=== PATIENT | female | born 1935 ===

== ENCOUNTER 2023-06-04 21:24 | Emergency (ER) | payer MEDICARE ==
[~2023-06-04] VITALS: Ht 162.6 cm; Wt 59.0 kg
[2023-06-04 21:32] VITALS: TEMP 98.2
[2023-06-04 22:30] VITALS: BP 149/82; PULSE 70; RESP 16
[2023-06-04] MEDS ORDERED: TraMADol HCL 50 MG TABLET PO ONE (22:30)
[2023-06-04] MEDS ORDERED: ACETAMINOPHEN 500 MG TABLET PO ONE (22:30)
[2023-06-04 22:52] LABS: BASOPHILS % (AUTO) 0.6 % (0.0-2.0); EOSINOPHILS % (AUTO) 0.7 % (1.0-6.0); HEMOGLOBIN 13.5 g/dL (12.0-16.0); LYMPHOCYTES # (AUTO) 1.7 K/uL (1.0-4.8); LYMPHOCYTES % (AUTO) 36.4 % (22.0-44.0); MEAN CORPUSCULAR HEMOGLOBIN 29.9 pg (26.0-34.0); MEAN CORPUSCULAR HGB CONC 32.2 G/dL (31.0-37.0); MEAN CORPUSCULAR VOLUME 93 fL (80-100); MONOCYTES # (AUTO) 0.6 K/uL (0.1-1.0); NEUTROPHILS # (AUTO) 2.3 K/uL (1.8-7.7); NEUTROPHILS % (AUTO) 49.3 % (40.0-70.0); PLATELET COUNT (AUTO) 157 K/uL (150-450); RED BLOOD CELL COUNT(AUTO) 4.53 MIL/uL (4.00-5.20); RED CELL DISTRIBUTION WIDTH 14.4 % (11.5-14.5); WHITE BLOOD COUNT (AUTO) 4.7 K/uL (4.5-11.0)
[2023-06-04 23:05] LABS: ANION GAP 6 mmol/L (8-16); CALCIUM, TOTAL 8.7 mg/dL (8.8-10.5); CARBON DIOXIDE 29 mmol/L (22-29); CHLORIDE 102 mmol/L (98-107); CREATININE 0.65 mg/dL (0.60-1.30); GLOMERULAR FILTR. RATE CALC > 60 mL/min (>60); GLUCOSE,RANDOM 89 mg/dL (70-110); POTASSIUM 4.2 mmol/L (3.5-5.1); SODIUM SERUM 137 mmol/L (136-145); UREA NITROGEN, BLOOD 24 mg/dL (7-18)
[2023-06-04 23:12] LABS: ALANINE AMINOTRANSFERASE 21 U/L (12-78); ALBUMIN 3.3 g/dL (3.4-5.0); ALKALINE PHOSPHATASE 115 U/L (46-116); ASPARTATE AMINOTRANSFERASE 21 U/L (15-37); BILIRUBIN,TOTAL 0.3 mg/dL (0.1-1.0); TOTAL PROTEIN, SERUM 6.1 g/dL (6.4-8.2)
== END 2023-06-05 01:36 | disposition home or self-care (01) ==
LOC: EMS 21:27
DX: F03.90 Unspecified dementia, unspecified severity, without behavioral disturbance, psychotic disturbance, mood disturbance, and anxiety (principal); M25.531 Pain in right wrist; I10 Essential (primary) hypertension
CPT/HCPCS: 80053; 85025; 99283

== ENCOUNTER 2023-06-09 07:18 | Inpatient (IN) | payer MEDICARE ==
[~2023-06-09] VITALS: Ht 160 cm; Wt 57.4 kg
[2023-06-09] MEDS ORDERED: SODIUM CHLORIDE 0.9% 100 ML ONE (07:48)
[2023-06-09] MEDS ORDERED: IOHEXOL 350 MG/ML 100 ML VIAL ONE (07:48)
[2023-06-09 08:04] LABS: BASOPHILS % (AUTO) 0.2 % (0.0-2.0); EOSINOPHILS % (AUTO) 0.1 % (1.0-6.0); HEMATOCRIT 49.8 % (36-46); HEMOGLOBIN 16.6 g/dL (12.0-16.0); LYMPHOCYTES # (AUTO) 0.4 K/uL (1.0-4.8); LYMPHOCYTES % (AUTO) 6.3 % (22.0-44.0); MEAN CORPUSCULAR HEMOGLOBIN 30.9 pg (26.0-34.0); MEAN CORPUSCULAR HGB CONC 33.3 G/dL (31.0-37.0); MEAN CORPUSCULAR VOLUME 93 fL (80-100); MONOCYTES # (AUTO) 0.4 K/uL (0.1-1.0); MONOCYTES % (AUTO) 6.3 % (2.0-9.0); NEUTROPHILS # (AUTO) 5.9 K/uL (1.8-7.7); PLATELET COUNT (AUTO) 163 K/uL (150-450); RED BLOOD CELL COUNT(AUTO) 5.37 MIL/uL (4.00-5.20); RED CELL DISTRIBUTION WIDTH 14.4 % (11.5-14.5); WHITE BLOOD COUNT (AUTO) 6.8 K/uL (4.5-11.0)
[2023-06-09 08:08] LABS: NEUTROPHILS % (AUTO) 87.1 % (40.0-70.0)
[2023-06-09 08:11] LABS: ANION GAP 6 mmol/L (8-16); CALCIUM, TOTAL 9.2 mg/dL (8.8-10.5); CARBON DIOXIDE 30 mmol/L (22-29); CHLORIDE 102 mmol/L (98-107); CREATININE 0.64 mg/dL (0.60-1.30); GLOMERULAR FILTR. RATE CALC > 60 mL/min (>60); GLUCOSE,RANDOM 112 mg/dL (70-110); POTASSIUM 4.6 mmol/L (3.5-5.1); SODIUM SERUM 138 mmol/L (136-145); UREA NITROGEN, BLOOD 23 mg/dL (7-18)
[2023-06-09 08:16] LABS: ALANINE AMINOTRANSFERASE 20 U/L (12-78); ALBUMIN 3.8 g/dL (3.4-5.0); ALKALINE PHOSPHATASE 129 U/L (46-116); ASPARTATE AMINOTRANSFERASE 21 U/L (15-37); BILIRUBIN,TOTAL 0.8 mg/dL (0.1-1.0); LIPASE 37 U/L (16-77); TOTAL PROTEIN, SERUM 7.2 g/dL (6.4-8.2)
[2023-06-09 08:17] LABS: TROPONIN I-HIGH SENSITIVITY 16 ng/L (<51)
[2023-06-09 08:18] LABS: LACTIC ACID 1.3 mmol/L (0.4-2.0)
[2023-06-09] MEDS: ONDANSETRON HCL 4 MG/2 ML VIAL IVP ONE (08:31)
[2023-06-09] MEDS: SODIUM CHLORIDE 0.9% 1,000 ML IV ONE ×2 (08:32→16:26)
[2023-06-09] MEDS: IOHEXOL 9 MG/ML 500 ML BOTTLE PO ONE (09:27)
[2023-06-09 14:08] LABS: APPEARANCE,URINE HAZY (CLEAR); BILIRUBIN,URINE NEGATIVE (NEGATIVE); COLOR,URINE YELLOW (YELLOW); GLUCOSE, URINE (UA) NEGATIVE (NEGATIVE); KETONES,URINE NEGATIVE (NEGATIVE); LEUKOCYTE ESTERASE ,URINE NEGATIVE (NEGATIVE); NITRATE,URINE NEGATIVE (NEGATIVE); OCCULT BLOOD,URINE NEGATIVE (NEGATIVE); PROTEIN,URINE NEGATIVE (NEGATIVE); UROBILINOGEN,URINE <=1.0 mg/dL (<=1.0)
[2023-06-09] MEDS ORDERED: ZOLPIDEM TARTRATE 5 MG TABLET PO PRN (14:30)
[2023-06-09] MEDS ORDERED: MAGNESIUM HYDROXIDE SUSPENSION 30 ML UDCUP PO PRN (14:30)
[2023-06-09] MEDS ORDERED: HYDROCODONE/ACETAMINOPHEN 5-325 MG TABLET PO PRN (14:30)
[2023-06-09] MEDS ORDERED: ONDANSETRON HCL 4 MG/2 ML VIAL IVP PRN (14:30)
[2023-06-09] MEDS ORDERED: BISACODYL 10 MG RECTAL RECTAL SUPPOSITORY PR PRN (14:30)
[2023-06-09 14:40] LABS: BACTERIA,URINE None Seen /HPF (None Seen); RBC,URINE None Seen /HPF (0-2); WBC,URINE 0-2 /HPF (0-5)
[2023-06-09 16:45] LABS: COVID AG,FIA SOURCE NASAL SWAB
[2023-06-09 17:31] LABS: SARS-COV2 (COVID) ANTIGEN,FIA Negative (Negative)
[2023-06-09] MEDS: HEPARIN SODIUM,PORCINE 5,000 UNITS/ML VIAL SQ SCH (17:40)
[2023-06-09] MEDS: DOCUSATE SODIUM 100 MG CAPSULE PO SCH (20:44)
[2023-06-09 23:30] VITALS: BP 146/76; PULSE 64; RESP 18; TEMP 97.6
[2023-06-10 05:05] VITALS: BP 144/76; PULSE 67; RESP 18; TEMP 97.8
[2023-06-10] MEDS: MORPHINE SULFATE 2 MG/ML SYRINGE IVP PRN (05:15)
[2023-06-10 07:01] LABS: BASOPHILS % (AUTO) 0.3 % (0.0-2.0); EOSINOPHILS % (AUTO) 0.7 % (1.0-6.0); HEMATOCRIT 43.4 % (36-46); HEMOGLOBIN 14.1 g/dL (12.0-16.0); LYMPHOCYTES # (AUTO) 1.4 K/uL (1.0-4.8); MEAN CORPUSCULAR HEMOGLOBIN 30.3 pg (26.0-34.0); MEAN CORPUSCULAR HGB CONC 32.6 G/dL (31.0-37.0); MEAN CORPUSCULAR VOLUME 93 fL (80-100); MONOCYTES # (AUTO) 0.4 K/uL (0.1-1.0); MONOCYTES % (AUTO) 12.5 % (2.0-9.0); NEUTROPHILS # (AUTO) 1.5 K/uL (1.8-7.7); NEUTROPHILS % (AUTO) 45.5 % (40.0-70.0); PLATELET COUNT (AUTO) 127 K/uL (150-450); RED BLOOD CELL COUNT(AUTO) 4.67 MIL/uL (4.00-5.20); RED CELL DISTRIBUTION WIDTH 14.4 % (11.5-14.5); WHITE BLOOD COUNT (AUTO) 3.4 K/uL (4.5-11.0)
[2023-06-10 07:17] LABS: ANION GAP 6 mmol/L (8-16); CALCIUM, TOTAL 8.4 mg/dL (8.8-10.5); CARBON DIOXIDE 27 mmol/L (22-29); CHLORIDE 107 mmol/L (98-107); CREATININE 0.52 mg/dL (0.60-1.30); GLOMERULAR FILTR. RATE CALC > 60 mL/min (>60); GLUCOSE,RANDOM 82 mg/dL (70-110); SODIUM SERUM 140 mmol/L (136-145); UREA NITROGEN, BLOOD 10 mg/dL (7-18)
[2023-06-10 08:36] VITALS: BP 143/64; PULSE 56; RESP 19; TEMP 97.7
[2023-06-10] MEDS: PANTOPRAZOLE SODIUM 40 MG DR TABLET PO SCH (08:42)
[2023-06-10] MEDS: ACETAMINOPHEN 325 MG TABLET PO PRN (16:10)
[2023-06-10 16:36] VITALS: BP 115/66; PULSE 60; RESP 19; TEMP 97.7
[2023-06-10 20:19] VITALS: BP 147/65; PULSE 60; RESP 20; TEMP 98.2
[2023-06-11 04:41] VITALS: BP 144/75; PULSE 64; RESP 18; TEMP 97.4
[2023-06-11 07:13] LABS: BASOPHILS % (AUTO) 0.5 % (0.0-2.0); EOSINOPHILS % (AUTO) 0.5 % (1.0-6.0); HEMATOCRIT 42.5 % (36-46); LYMPHOCYTES # (AUTO) 1.5 K/uL (1.0-4.8); LYMPHOCYTES % (AUTO) 35.5 % (22.0-44.0); MEAN CORPUSCULAR HEMOGLOBIN 30.6 pg (26.0-34.0); MEAN CORPUSCULAR HGB CONC 32.9 G/dL (31.0-37.0); MEAN CORPUSCULAR VOLUME 93 fL (80-100); MONOCYTES # (AUTO) 0.6 K/uL (0.1-1.0); MONOCYTES % (AUTO) 13.4 % (2.0-9.0); NEUTROPHILS # (AUTO) 2.1 K/uL (1.8-7.7); NEUTROPHILS % (AUTO) 50.1 % (40.0-70.0); PLATELET COUNT (AUTO) 136 K/uL (150-450); RED BLOOD CELL COUNT(AUTO) 4.57 MIL/uL (4.00-5.20); RED CELL DISTRIBUTION WIDTH 14.2 % (11.5-14.5); WHITE BLOOD COUNT (AUTO) 4.3 K/uL (4.5-11.0)
[2023-06-11 07:47] LABS: ANION GAP 7 mmol/L (8-16); CALCIUM, TOTAL 8.6 mg/dL (8.8-10.5); CARBON DIOXIDE 29 mmol/L (22-29); CHLORIDE 105 mmol/L (98-107); CREATININE 0.54 mg/dL (0.60-1.30); GLOMERULAR FILTR. RATE CALC > 60 mL/min (>60); GLUCOSE,RANDOM 80 mg/dL (70-110); POTASSIUM 3.9 mmol/L (3.5-5.1); SODIUM SERUM 141 mmol/L (136-145); UREA NITROGEN, BLOOD 9 mg/dL (7-18)
[2023-06-11 09:19] VITALS: BP 112/63; PULSE 71; RESP 18; TEMP 98
[2023-06-11 09:44] VITALS: BP 128/60; RESP 18; TEMP 97.9
[2023-06-11] MEDS ORDERED: POLY17PO47 PO (15:15)
[2023-06-11 16:18] VITALS: BP 151/78; PULSE 81; RESP 18; TEMP 98.2
== END 2023-06-11 18:45 | disposition home or self-care (01) | DRG 394 ==
LOC: EMS 07:18 → AHU 13:24 → 6S 22:49
PROVIDERS: ADMIT Internal Medicine; ATTEND Internal Medicine
DX: K42.9 Umbilical hernia without obstruction or gangrene (principal); E44.0 Moderate protein-calorie malnutrition; K56.7 Ileus, unspecified; K56.600 Partial intestinal obstruction, unspecified as to cause; R62.7 Adult failure to thrive; I10 Essential (primary) hypertension; F03.90 Unspecified dementia, unspecified severity, without behavioral disturbance, psychotic disturbance, mood disturbance, and anxiety; Z20.822 Contact with and (suspected) exposure to COVID-19; K43.9 Ventral hernia without obstruction or gangrene; Z68.22 Body mass index [BMI] 22.0-22.9, adult
CPT/HCPCS: 74177; 80048; 80053; 81001; 83605; 83690; 84484; 85025; 93005; 99285; J1644; J2270; J2405; J7030; J7050; Q9967

== ENCOUNTER 2023-09-11 09:05 | Inpatient (IN) | payer MEDICARE ==
[~2023-09-11] VITALS: Ht 157.5 cm; Wt 55.3 kg
[~2023-09-11 09:05] MED LIST: POLY17PO47 PO
[2023-09-11] MEDS: SODIUM CHLORIDE 0.9% 1,000 ML IV ONE (09:31)
[2023-09-11 09:43] LABS: BASOPHILS % (AUTO) 0.5 % (0.0-2.0); EOSINOPHILS % (AUTO) 0.6 % (1.0-6.0); HEMOGLOBIN 14.2 g/dL (12.0-16.0); LYMPHOCYTES # (AUTO) 1.2 K/uL (1.0-4.8); LYMPHOCYTES % (AUTO) 30.9 % (22.0-44.0); MEAN CORPUSCULAR HEMOGLOBIN 30.3 pg (26.0-34.0); MEAN CORPUSCULAR HGB CONC 32.9 G/dL (31.0-37.0); MEAN CORPUSCULAR VOLUME 92 fL (80-100); MONOCYTES # (AUTO) 0.4 K/uL (0.1-1.0); MONOCYTES % (AUTO) 11.2 % (2.0-9.0); NEUTROPHILS # (AUTO) 2.2 K/uL (1.8-7.7); NEUTROPHILS % (AUTO) 56.8 % (40.0-70.0); PLATELET COUNT (AUTO) 164 K/uL (150-450); RED BLOOD CELL COUNT(AUTO) 4.68 MIL/uL (4.00-5.20)
[2023-09-11 09:46] LABS: ANION GAP 6 mmol/L (8-16); CALCIUM, TOTAL 8.6 mg/dL (8.8-10.5); CARBON DIOXIDE 29 mmol/L (22-29); CHLORIDE 103 mmol/L (98-107); CREATININE 0.63 mg/dL (0.60-1.30); GLOMERULAR FILTR. RATE CALC > 60 mL/min (>60); GLUCOSE,RANDOM 135 mg/dL (70-110); POTASSIUM 4.9 mmol/L (3.5-5.1); SODIUM SERUM 138 mmol/L (136-145); UREA NITROGEN, BLOOD 18 mg/dL (7-18)
[2023-09-11 09:50] LABS: INR 1.1 (0.9-1.1); PROTHROMBIN TIME 11.1 SEC (9.4-11.6)
[2023-09-11 09:54] LABS: LACTIC ACID 1.8 mmol/L (0.4-2.0); TROPONIN I-HIGH SENSITIVITY 15 ng/L (<51)
[2023-09-11 09:55] LABS: ALANINE AMINOTRANSFERASE 20 U/L (12-78); ALBUMIN 3.1 g/dL (3.4-5.0); ALKALINE PHOSPHATASE 112 U/L (46-116); ASPARTATE AMINOTRANSFERASE 27 U/L (15-37); B-TYPE NATRIURETIC PEPTIDE 119 pg/mL (0-100); BILIRUBIN,TOTAL 0.7 mg/dL (0.1-1.0); CREATINE KINASE, TOTAL ONLY 60 U/L (26-192)
[2023-09-11 10:06] LABS: WHITE BLOOD COUNT (AUTO) 3.9 K/uL (4.5-11.0)
[2023-09-11] MEDS ORDERED: NIFE-141 PO (10:31)
[2023-09-11] MEDS ORDERED: METH1TAB66 PO (10:31)
[2023-09-11] MEDS ORDERED: PANT-31 PO (10:31)
[2023-09-11] MEDS ORDERED: LAMO-24 PO (10:31)
[2023-09-11] MEDS ORDERED: ISOS30TA68 PO (10:31)
[2023-09-11] MEDS ORDERED: LOVA20TA73 PO (10:31)
[2023-09-11] MEDS ORDERED: MIRT-149 PO (10:31)
[2023-09-11] MEDS ORDERED: RIBO400T PO (10:31)
[2023-09-11 11:32] LABS: APPEARANCE,URINE CLEAR (CLEAR); BILIRUBIN,URINE NEGATIVE (NEGATIVE); COLOR,URINE YELLOW (YELLOW); GLUCOSE, URINE (UA) NEGATIVE (NEGATIVE); KETONES,URINE NEGATIVE (NEGATIVE); LEUKOCYTE ESTERASE ,URINE NEGATIVE (NEGATIVE); NITRATE,URINE NEGATIVE (NEGATIVE); OCCULT BLOOD,URINE NEGATIVE (NEGATIVE); PROTEIN,URINE NEGATIVE (NEGATIVE); SPECIFIC GRAVITIY, URINE 1.015 (1.003-1.030); UROBILINOGEN,URINE <=1.0 mg/dL (<=1.0)
[2023-09-11 12:01] LABS: COVID AG,FIA SOURCE NASAL SWAB
[2023-09-11 12:52] LABS: SARS-COV2 (COVID) ANTIGEN,FIA Negative (Negative)
[2023-09-11] MEDS ORDERED: MORPHINE SULFATE 2 MG/ML SYRINGE IVP PRN (13:45)
[2023-09-11] MEDS ORDERED: BISACODYL 10 MG RECTAL RECTAL SUPPOSITORY PR PRN (13:45)
[2023-09-11] MEDS ORDERED: ZOLPIDEM TARTRATE 5 MG TABLET PO PRN (13:45)
[2023-09-11] MEDS ORDERED: HYDROCODONE/ACETAMINOPHEN 5-325 MG TABLET PO PRN (13:45)
[2023-09-11] MEDS ORDERED: MAGNESIUM HYDROXIDE SUSPENSION 30 ML UDCUP PO PRN (13:45)
[2023-09-11 15:10] LABS: ALCOHOL, URINE DRUG SCREEN NEGATIVE (NEGATIVE); AMPHET/METH SCREEN,URINE NEGATIVE (NEGATIVE); BARBITURATE SCREEN, URINE NEGATIVE (NEGATIVE); BENZODIAZEPINES SCREEN,URINE NEGATIVE (NEGATIVE); CANNABINOID SCREEN,URINE NEGATIVE (NEGATIVE); COCAINE SCREEN,URINE NEGATIVE (NEGATIVE); METHADONE SCREEN, URINE NEGATIVE (NEGATIVE); OPIATE SCREEN,URINE NEGATIVE (NEGATIVE); PHENCYCLIDINE SCREEN,URINE NEGATIVE (NEGATIVE)
[2023-09-11] MEDS: HEPARIN SODIUM,PORCINE 5,000 UNITS/ML VIAL SQ SCH (16:58)
[2023-09-11 17:26] VITALS: BP 130/68; PULSE 60; RESP 19; TEMP 98.3
[2023-09-11 18:33] VITALS: BP 125/71; PULSE 74; RESP 18; TEMP 97.4
[2023-09-11 20:14] VITALS: BP 136/59; PULSE 63; RESP 18; TEMP 98.2
[2023-09-11] MEDS: DOCUSATE SODIUM 100 MG CAPSULE PO SCH (20:53)
[2023-09-11 23:10] VITALS: BP 137/69; PULSE 63; RESP 18; TEMP 97.8
[2023-09-12 04:47] VITALS: BP 161/86; PULSE 84; RESP 18; TEMP 98.1
[2023-09-12] MEDS: PANTOPRAZOLE SODIUM 40 MG DR TABLET PO SCH (09:34)
[2023-09-12] MEDS: LOVASTATIN 20 MG TABLET PO SCH (09:34)
[2023-09-12] MEDS: LamoTRIgine 100 MG TABLET PO SCH (09:35)
[2023-09-12] MEDS: POLYETHYLENE GLYCOL 3350 17 GM PACKET PO SCH (09:36)
[2023-09-12 09:42] VITALS: BP 148/88; PULSE 70; RESP 20; TEMP 98
[2023-09-12 11:16] VITALS: BP 149/65; PULSE 71; RESP 18; TEMP 98.1
[2023-09-12 17:06] VITALS: BP 169/78; PULSE 67; RESP 20; TEMP 98
[2023-09-12 20:28] VITALS: BP 160/71; PULSE 70; RESP 19; TEMP 98.2
[2023-09-12] MEDS: MIRTAZAPINE 15 MG TABLET PO SCH (21:40)
[2023-09-12 23:16] VITALS: BP 150/75; PULSE 65; RESP 18; TEMP 97.6
[2023-09-13 03:44] VITALS: BP 160/82; PULSE 74; RESP 18; TEMP 97.9
[2023-09-13 07:44] VITALS: BP 153/71; PULSE 71; RESP 18; TEMP 98
[2023-09-13 11:37] VITALS: BP 140/77; PULSE 75; RESP 16; TEMP 98.4
[2023-09-13 16:36] VITALS: BP 156/75; PULSE 81; RESP 17; TEMP 98.1
[2023-09-13 20:27] VITALS: BP 155/80; PULSE 81; RESP 19; TEMP 99.7
[2023-09-14] VITALS (7 sets, daily range): BP systolic 109–185; BP diastolic 58–87; PULSE 74–89; RESP 16–19; TEMP 97.4–98.1
[2023-09-14] MEDS: NIFEdipine 10 MG CAPSULE PO SCH (13:51)
[2023-09-14] MEDS: ONDANSETRON HCL 4 MG/2 ML VIAL IVP PRN (13:52)
[2023-09-14] MEDS: ACETAMINOPHEN 325 MG TABLET PO PRN (18:59)
[2023-09-15 04:35] VITALS: BP 112/50; PULSE 74; RESP 19; TEMP 98
[2023-09-15 07:54] VITALS: BP 115/56; PULSE 78; RESP 18; TEMP 97.9
[2023-09-15 11:09] VITALS: BP 110/52; PULSE 71; RESP 18; TEMP 98.3
[2023-09-15 15:40] VITALS: BP 128/78; PULSE 80; RESP 18; TEMP 98
[2023-09-15 19:51] VITALS: BP 108/60; PULSE 71; RESP 18; TEMP 98
[2023-09-16 00:04] VITALS: BP 130/68; PULSE 70; RESP 18; TEMP 97.8
[2023-09-16 04:00] VITALS: BP 132/73; PULSE 81; RESP 18; TEMP 97.5
[2023-09-16 07:21] VITALS: BP 145/77; PULSE 76; RESP 18; TEMP 98
[2023-09-16 12:27] VITALS: BP 132/63; PULSE 77; RESP 20; TEMP 98.2
[2023-09-16 16:26] VITALS: BP 147/86; PULSE 82; RESP 20; TEMP 98.7
[2023-09-16 20:50] VITALS: BP 126/72; PULSE 82; RESP 18; TEMP 98.9
[2023-09-16 23:30] LABS: GLUCOMETER DEV NAME(LOC) 4E.2; GLUCOSE,POINT OF CARE 105 MG/DL (70-110)
[2023-09-17 04:08] VITALS: BP 139/72; PULSE 76; RESP 19; TEMP 98.2
[2023-09-17 08:54] VITALS: BP 139/69; PULSE 73; RESP 18; TEMP 97.6
[2023-09-17 18:13] VITALS: BP 142/84; PULSE 71; RESP 18; TEMP 97.9
[2023-09-17 19:24] VITALS: BP 137/71; PULSE 78; RESP 18; TEMP 98.1
[2023-09-18 05:05] VITALS: BP 137/56; PULSE 72; RESP 18; TEMP 98.1
[2023-09-18 08:03] LABS: BASOPHILS % (AUTO) 1.4 % (0.0-2.0); EOSINOPHILS % (AUTO) 1.1 % (1.0-6.0); HEMATOCRIT 42.4 % (36-46); HEMOGLOBIN 13.9 g/dL (12.0-16.0); LYMPHOCYTES # (AUTO) 1.4 K/uL (1.0-4.8); LYMPHOCYTES % (AUTO) 33.4 % (22.0-44.0); MEAN CORPUSCULAR HEMOGLOBIN 30.2 pg (26.0-34.0); MEAN CORPUSCULAR HGB CONC 32.9 G/dL (31.0-37.0); MEAN CORPUSCULAR VOLUME 92 fL (80-100); MONOCYTES # (AUTO) 0.6 K/uL (0.1-1.0); MONOCYTES % (AUTO) 14.8 % (2.0-9.0); NEUTROPHILS % (AUTO) 49.3 % (40.0-70.0); PLATELET COUNT (AUTO) 197 K/uL (150-450); RED BLOOD CELL COUNT(AUTO) 4.62 MIL/uL (4.00-5.20); RED CELL DISTRIBUTION WIDTH 14.2 % (11.5-14.5); WHITE BLOOD COUNT (AUTO) 4.1 K/uL (4.5-11.0)
[2023-09-18 08:38] LABS: ANION GAP 6 mmol/L (8-16); CALCIUM, TOTAL 8.7 mg/dL (8.8-10.5); CARBON DIOXIDE 29 mmol/L (22-29); CHLORIDE 102 mmol/L (98-107); CREATININE 0.62 mg/dL (0.60-1.30); GLOMERULAR FILTR. RATE CALC > 60 mL/min (>60); GLUCOSE,RANDOM 100 mg/dL (70-110); POTASSIUM 4.3 mmol/L (3.5-5.1); SODIUM SERUM 137 mmol/L (136-145); UREA NITROGEN, BLOOD 15 mg/dL (7-18)
[2023-09-18 09:09] VITALS: BP 138/73; PULSE 66; RESP 18; TEMP 97.4
[2023-09-18 16:45] VITALS: BP 150/78; PULSE 72; RESP 18; TEMP 98.3
[2023-09-18 20:20] VITALS: BP 141/70; PULSE 73; RESP 18; TEMP 98.8
[2023-09-19 04:19] VITALS: BP 131/70; PULSE 67; RESP 18; TEMP 98.1
[2023-09-19 08:43] VITALS: BP 122/64; PULSE 70; RESP 20; TEMP 98.1
[2023-09-19] MEDS ORDERED: NIFE10CA50 PO (09:23)
== END 2023-09-19 12:40 | disposition home health service (06) | DRG 312 ==
LOC: EMS 09:47 → AHU 11:40 → 5S 14:43 → 6S 09-16 10:28
PROVIDERS: ADMIT Internal Medicine; ATTEND Internal Medicine
DX: R55 Syncope and collapse (principal); G91.9 Hydrocephalus, unspecified; F03.90 Unspecified dementia, unspecified severity, without behavioral disturbance, psychotic disturbance, mood disturbance, and anxiety; I10 Essential (primary) hypertension; E78.5 Hyperlipidemia, unspecified; I44.7 Left bundle-branch block, unspecified; Z66 Do not resuscitate; Z20.822 Contact with and (suspected) exposure to COVID-19; F31.9 Bipolar disorder, unspecified; Z79.899 Other long term (current) drug therapy; I95.9 Hypotension, unspecified
CPT/HCPCS: 70450; 71045; 80048; 80053; 80307; 81003; 82550; 82962; 83605; 83880; 84145; 84484; 85025; 85610; 85730; 93005; 97162; 97530; 99285; J1644; J2405; J7030; 36415-L1; 36415-TC